=== PATIENT | male | born 1995 | race Caucasian/White ===

== ENCOUNTER 2017-03-05 10:26 | Emergency (ER) | payer OTHER ==
[~2017-03-05] VITALS: Ht 175.3 cm; Wt 72.7 kg
[2017-03-05 14:10] VITALS: BP 125/76
== END 2017-03-05 13:55 | disposition home or self-care (01) ==
LOC: ED 10:26
DX: R56.9 Unspecified convulsions (principal); S70.11XA Contusion of right thigh, initial encounter; S00.532A Contusion of oral cavity, initial encounter; F10.120 Alcohol abuse with intoxication, uncomplicated; X58.XXXA Exposure to other specified factors, initial encounter; Y92.149 Unspecified place in prison as the place of occurrence of the external cause